=== PATIENT | female | born 2000 | race Caucasian/White ===

== ENCOUNTER 2023-08-25 15:04 | Emergency (ER) | payer SELFPAY ==
[2023-08-25 15:05] VITALS: BP 120/78; PULSE 69; RESP 14; TEMP 36.4; O2SAT 100; BMI 20.2
--- NOTE | 2023-08-25 15:26 | ED.VIS.GI ---
HPI HPI - GI History of Present Illness Chief Complaint: Abd Pain Informant: patient Abdominal Pain/Flank Pain Onset: Today Context: Sudden Onset Timing: Continuous Quality: Aching and Cramping Location: RLQ and LLQ Worsened by: Nothing Relieved by: Nothing Nausea/Vomiting/Emesis GI Symptom: Positive for Nausea and Vomiting Onset: Today Quality: Positive for Nonbilious; Negative for Blood streaks, Coffee ground or Hematemesis Diarrhea/Melena/Hematochezia GI Symptom: Positive for Diarrhea; Negative for Melena or Hematochezia Onset: Today Stool Quality: Positive for Loose Associated Symptoms Associated Symptoms: Negative for Dysuria, Frequency or Hematuria LMP: 2 days ago Narrative Narrative: Patient presents with abdominal pain, nausea, vomiting, and diarrhea that began today. Patient states it began approximate 1 hour prior to arrival. Patient states it began rather suddenly. Patient describes her pain as aching and sharp. Patient states it is mainly over her lower abdomen. Patient states nothing makes it better and nothing makes it worse. Patient admits to some nausea and vomiting. Patient denies any hematemesis or coffee-ground emesis. Patient admits to some loose diarrhea. Patient denies any melena or hematochezia. Patient denies any urinary complaints. Patient states her last menstrual period was 2 days ago. PFSH PFSH Medical History no medical history no medical history Home Medications sulfamethoxazole 800 mg-trimethoprim 160 mg tablet 1 tab PO BID #6 TABLETS 08/25/23 [Rx Last Taken Unknown] Allergy/AdvReac Type Severity Reaction Status Date / Time Iodinated Contrast Media Allergy Severe Anaphylaxis Verified 08/25/23 15:06 shellfish derived Allergy Severe Anaphylaxis Verified 08/25/23 15:06 Surgical History Hx of tonsillectomy Social History Smoking Status: Never smoker ROS ROS ED Constitutional Constitutional ED: Reports chills and subjective; Denies fever(s) Eyes Eyes: Denies blurry vision or change in vision ENT ENT ED: Denies rhinorrhea or sore throat Cardiovascular Cardiovascular: Denies chest pain or palpitations Respiratory/Chest Respiratory/Chest: Denies cough or dyspnea Gastrointestinal Gastrointestinal: Reports abdominal pain, diarrhea, nausea and vomiting; Denies melena Genitourinary Genitourinary ED: Denies dysuria or hematuria Musculoskeletal Musculoskeletal: Denies back pain or neck pain Integumentary Denies abscess or rash Neurologic Neurologic: Denies headache(s) or weakness Allergic/Immunologic Allergic/Immunologic ED: Denies mouth swelling or urticaria EXAM Physical Exam Const Vital Signs: 08/25/23 15:05 Temperature 97.5 F L Temperature Source Temporal Pulse Rate 69 Respiratory Rate 14 Blood Pressure 120/78 Blood Pressure Mean 92 Pulse Ox 100 Oxygen Delivery Method Room Air Positive well nourished and well developed General Appearance ED: well developed and NAD HEENT Reports moist mucous membranes Neck supple and no JVD Resp normal respiratory effort and clear to auscultation bilaterally Cardio regular rate and regular rhythm GI non-distended Palpation: soft and tender LLQ, RLQ and suprapubic; Negative for guarding or rebound tenderness present Neuro CN's II-XII intact bilaterally, moves all extremities and no sensory deficits noted Sensorium / Orientation: alert Motor Exam: strength 5/5 throughout Psych mental status grossly normal and thought process normal MDM MDM MDM Narrative Medical decision making narrative: Differential diagnosis includes urinary tract infection, , ectopic , gastroenteritis, and electrolyte abnormality. CBC will be obtained to assess for leukocytosis and anemia. Basic metabolic profile will be obtained to assess for electrolyte abnormality and renal function. Urinalysis will be obtained to assess for urinary tract infection. Serum hCG will be obtained to assess for . Lab Data Attestation: I reviewed the patient's lab results. Lab results narrative: CBC was reviewed. There is a mild leukocytosis of 16.6. The remainder was essentially within normal limits. Basic metabolic profile was reviewed and was within normal limits. Serum hCG was reviewed and was negative. Urinalysis was reviewed. There were positive nitrites. Leukocyte esterase was 100. There were 10-25 white blood cells and 4+ bacteria. Labs: Laboratory Results - last 24 hr 08/25/23 08/25/23 15:30 15:35 WBC 16.6 H RBC 4.89 Hgb 15.3 H Hct 45.5 MCV 93.0 MCH 31.3 MCHC 33.6 RDW Std Deviation 40.7 RDW Coeff of Art 11.9 Plt Count 413 MPV 9.7 Immature Gran % (Auto) 1.300 H Neut % (Auto) 83.4 H Lymph % (Auto) 7.8 L [place] % (Auto) 6.1 Eos % (Auto) 0.7 Baso % (Auto) 0.7 Absolute Neuts (auto) 13.9 H Absolute Lymphs (auto) 1.30 Nucleated RBC % 0 Sodium 137 Potassium 3.7 Chloride 106 Carbon Dioxide 28.0 Anion Gap 3 L BUN 10 Creatinine 0.76 Estim Creat Clear Calc 86.87 Est GFR (MDRD) Af Amer 121 Est GFR (MDRD) Non-Af 100 BUN/Creatinine Ratio 13.2 Glucose 95 Calcium 8.9 Serum , Qual NEGATIVE Urine Color Yellow Urine Clarity Cloudy Urine pH 7.[address] 1.010 Urine Protein 30 H Urine Glucose (UA) Normal Urine Ketones 5 H Urine Occult Blood 25 H Urine Nitrite Positive H Urine Bilirubin Negative Urine Urobilinogen Normal Ur Leukocyte Esterase 100 H Urine RBC 0-5 SEEN Urine WBC 10-25 SEEN Ur Squamous Epith Cells 0 SEEN Amorphous Sediment 2+ Urine Bacteria 4+ Urine Mucus 0 SEEN Additional Tests and Interventions Additional Tests or Interventions: Urine culture was ordered. Treatment and Re-Evaluation :: Patient was given IV fluids. Patient was ordered Zofran but she refused this. Patient was feeling better on reevaluation. Patient was advised of her findings. Patient was given a dose of Bactrim here. Patient was given a prescription for Bactrim. Patient was instructed to follow-up with her primary care physician in 5 to 7 days. Patient was instructed return if worse in any way. Patient understood and was agreeable with the plan. All questions were answered. Discharge Plan Triage Chief Complaint: Abd Pain ED Provider: Rancho Morris Dx/Rx/DC Orders Clinical Impression: Urinary tract infection, Lower abdominal pain Instructions: ED Cystitis Female Adult Prescriptions: New sulfamethoxazole-trimethoprim [sulfamethoxazole-trimethoprim] 800-160 mg tablet 1 tab PO BID Qty: 6 0RF Primary Care Provider: Care Physician,No Primary Referrals: Care Physician,No Primary [Primary Care Provider] - Disposition Disposition: Home, Self Care
[2023-08-25] MEDS: 0.9% Normal Saline (1000mL) 1,000 ML 1000 ML IV (15:50)
[2023-08-25 15:51] LABS: Mucous, Urine 0 SEEN /hpf (<or=2+); Squamous Epithelial Cells - UA 0 SEEN /hpf (5-10)
[2023-08-25 15:53] LABS: Absolute Neutrophil Count 13.9 X10^3/uL (2.0-7.7); Basophil# 0.11 X10^3/uL; Basophil% 0.7 % (0-1); Eosinophil# 0.11 X10^3/uL; Eosinophils% 0.7 % (0-5); Hematocrit 45.5 % (37-47); Hemoglobin 15.3 g/dL (12.0-15.0); Lymphocyte % 7.8 % (19-41); Mean Corp Hgb Conc 33.6 g/dL (32-36); Mean Corpuscular Hgb 31.3 pg (27.0-32.0); Mean Platelet Vol. 9.7 fl (6.2-12.0); Monocyte# 1.01 X10^3/uL; Monocyte% 6.1 % (0-10); NRBC Flagged by Analyzer 0 % (0-5); Neutrophil # 13.86 X10^3/uL (2.7-7.7); Neutrophil % 83.4 % (47-70); Platelet Count 413 K/mm3 (150-450); RBC Distribution Width CV 11.9 % (11.6-14.6); RBC Distribution Width SD 40.7 fl (35.1-43.9); Red Blood Count 4.89 M/mm3 (4.2-5.4); White Blood Count 16.6 K/mm3 (4.4-11.0)
[2023-08-25 15:58] LABS: Glucose, Dipstick Normal (Normal); Ketone-Dipstick 5 mg/dl (Negative); Leukocyte Esterase-Dipstick 100 /ul (Negative); Nitrite-Dipstick Positive (Negative); Occult Blood-Urine 25 /ul (Negative); Protein-Dipstick 30 mg/dl (Negative); Urine Bilirubin Dipstick Negative (Negative); Urine Urobilinogen Normal (Normal)
[2023-08-25 16:09] LABS: Internal QC Validated? YES +Cl - CLEAR BKGD; Pregnancy, Serum, hCG Quali. NEGATIVE Negative
[2023-08-25 16:09] LABS: Color, Urine Yellow (Yellow); Urine Clarity Cloudy (Clear)
[2023-08-25 16:13] LABS: Amorphous Sediment 2+; Bacteria 4+ /hpf (None Seen); Red Blood Cells-Urine 0-5 SEEN /hpf (0-5); White Blood Cells 10-25 SEEN /hpf (0-5)
[2023-08-25 16:14] LABS: Anion Gap 3 (5-15); BUN 10 mg/dL (7-18); BUN/Creat Ratio 13.2 RATIO (10-20); Calcium,Total 8.9 mg/dL (8.5-10.1); Chloride 106 mmol/L (98-107); Creatinine, Serum 0.76 mg/dL (0.55-1.02); EST Glomerular Filtration Rate 100 mL/min (>60); Est Glom Filt Rate - Afr Amer 121 mL/min (>60); Estimated Creatinine Clearance 86.87 ml/min; Glucose 95 mg/dL (74-106); Potassium 3.7 mmol/L (3.5-5.1); Sodium Level 137 mmol/L (136-145)
[2023-08-25] MEDS: Smz/Tmp Ds Tablet 1 TABLET PO (17:22)
[2023-08-25 17:24] VITALS: RESP 14
== END 2023-08-25 17:25 | disposition home or self-care (01) ==
PROVIDERS: Emergency Provider Emergency Medicine; Visit Provider Emergency Medicine
DX: N39.0 Urinary tract infection, site not specified (principal); R19.7 Diarrhea, unspecified; R11.2 Nausea with vomiting, unspecified; R10.31 Right lower quadrant pain; R10.32 Left lower quadrant pain
CPT/HCPCS: 80048; 81001; 84703; 85025; 87086; 87088; 87186; 96361; 96374; 99283; J7030; A4216; J2405

== ENCOUNTER 2024-08-22 15:14 | Emergency (ER) | payer SELFPAY ==
[2024-08-22 15:15] VITALS: BP 100/59; PULSE 75; RESP 18; TEMP 36.5; O2SAT 100; BMI 22.8
--- NOTE | 2024-08-22 15:28 | EKG12_ITS ---
Test Reason : SYNCOPE Blood Pressure : */* mmHG Vent. Rate : 78 BPM Atrial Rate : 78 BPM P-R Int : 160 ms QRS Dur : 78 ms QT Int : 384 ms P-R-T Axes : 52 47 23 degrees QTcB Int : 437 ms Sinus rhythm with occasional Premature ventricular complexes Otherwise normal ECG Confirmed by LUCRECIA LYONS, DALLAS ([id number]), greeting card editor ANAHY CAROLINA ([id number]) on 08/23/2024 11:40:50 AM Referred By: Confirmed By: DALLAS SINGER MD
--- NOTE | 2024-08-22 15:29 | EX.ED.DYSGE1 ---
HPI History of Present Illness Chief Complaint: Syncope Detail of Chief Complaint: Syncope Informant: patient Narrative Narrative: Patient presents to the emergency department with concern over syncopal episode that occurred today. Patient states that she had just urinated and stood up to wash her hands and started feeling weak and lightheaded and felt like she might pass out as her heart was racing. She sat back down and prop herself up against the toilet and called her family member and eventually lost consciousness for about a minute and woke back up. She did not injure herself. Patient states that this is the third episode with this current . She is 16 weeks . Her last episode was about 4 weeks ago. She typically has enough time to lay down or proper self up before she passes out and wait for symptoms to pass. Patient denies recent illness. She denies vomiting or diarrhea. She denies chest pain. Patient last ultrasound was early August which was approximately a week ago. Patient denies any vaginal bleeding or abdominal pain. Patient called her [employer] who advised her to come to the emergency department and get evaluated. [facility] Medical History (Updated 08/22/24 @ 17:[address] Ramonita Robertson, DO) Physical exam, pre-employment Home Medications ?Medication ?Instructions ?Recorded ?Last Taken ?Type lactobacillus combination no.4 3 3,000 mmu cells PO DAILY 03/13/24 Unknown History billion cell capsule (Probiotic) naproxen sodium 220 mg capsule 220 mg PO Q12H PRN 03/13/24 Unknown History (Aleve) nitrofurantoin 100 mg PO Q12H 7 days #14 caps 08/22/24 Unknown Rx monohydrate/macrocrystals 100 mg capsule (Macrobid) Allergy/AdvReac Type Severity Reaction Status Date / Time Iodinated Contrast Media Allergy Severe Anaphylaxis Verified 08/22/24 15:15 shellfish derived Allergy Severe Anaphylaxis Verified 08/22/24 15:15 copper Allergy Rash Verified 08/22/24 15:15 nickel Allergy Rash Verified 08/22/24 15:15 Family History Other Diabetes Surgical History Hx of tonsillectomy Social History (Updated 03/13/24 @ 11:17 by Jenny Elma) Smoking Status: Never smoker alcohol intake: never ROS ROS ED Review of Systems ROS Unobtainable: other Constitutional Constitutional ED: Reports lethargy; Denies chills, fever(s), sweats or weight loss Eyes Eyes: Denies blurry vision, change in vision or diplopia ENT ENT ED: Denies rhinorrhea or sore throat Cardiovascular Cardiovascular: Reports racing heartbeat; Denies chest pain or orthopnea Respiratory/Chest Respiratory/Chest: Denies cough, dyspnea, dyspnea on exertion, orthopnea or sputum Gastrointestinal Gastrointestinal: Denies abdominal pain, diarrhea, nausea or vomiting Genitourinary Genitourinary ED: Denies dysuria, hematuria or urinary frequency Musculoskeletal Musculoskeletal: Denies arthralgias, back pain, myalgias or neck pain Integumentary Denies abscess, Abrasions or rash Neurologic Neurologic: Reports other Details: Syncope ; Denies headache(s) or weakness Psychiatric Psychiatric: Denies anxiety, depression or suicidal thoughts Endocrine Endocrinology: Denies polydipsia, polyphagia or polyuria Hematologic/Lymphatic Hematologic/Lymphatic: Denies easy bleeding, easy bruising or lymphadenopathy Allergic/Immunologic Allergic/Immunologic ED: Denies mouth swelling, tongue swelling or urticaria EXAM Physical Exam Const Vital Signs: 08/22/24 15:15 08/22/24 15:41 Temperature 97.7 F L Temperature Source Temporal Pulse Rate 75 Pulse Rate [Lying] 77 Pulse Rate [Sitting (for 1 minute prior to obtaining)] 79 Pulse Rate [Standing (for 1 minute prior to obtaining)] 88 Respiratory Rate 18 Blood Pressure 100/59 L Blood Pressure [Lying] 95/49 L Blood Pressure [Sitting (for 1 minute prior to obtaining)] 96/55 L Blood Pressure [Standing (for 1 minute prior to obtaining)] 110/56 L Blood Pressure Mean 72 Blood Pressure Mean [Lying] 64 Blood Pressure Mean [Sitting (for 1 minute prior to obtaining)] 68 Blood Pressure Mean [Standing (for 1 minute prior to obtaining)] 74 Pulse Ox 100 Oxygen Delivery Method Room Air Positive well nourished and well developed General Appearance ED: well developed and NAD HEENT Reports TM's clear and moist mucous membranes normocephalic and atraumatic; Negative for trauma or tenderness Tympanic Membrane ED: Yes TM's clear Eyes PERRL and EOMs intact bilaterally General Eye ED: Negative for pale conjunctiva or scleral icterus Neck no lymphadenopathy, supple and no JVD General: Negative for tenderness Chest Wall inspection of chest normal and palpation of chest normal Chest: Negative for tenderness Resp normal respiratory effort and clear to auscultation bilaterally Effort and Inspection: Negative for respiratory distress or pain with movement Auscultation: Negative for rhonchi, wheezes or diminished lung sounds Cardio regular rate, regular rhythm, S1 normal heart sound, S2 normal heart sound and no murmurs Peripheral Pulses: pulses 2+ throughout GI normal to inspection, nondistended, normoactive bowel sounds, soft to palpation, non-tender, non-distended and no masses Back/Spine no CVA tenderness and no thoracic nor lumbar tenderness Extremity normal to inspection General Extremety ED: Negative for edema General Extremity: Negative for edema Neuro oriented x3, CN's II-XII intact bilaterally, no sensory deficits noted and gait normal Sensorium / Orientation: awake, alert, oriented to person, oriented to place and oriented to time Motor Exam: strength 5/5 throughout and strength abnormal Psych mental status grossly normal Skin no rashes or lesions noted and no wounds MDM MDM MDM Narrative Medical decision making narrative: Patient with a syncopal episode with . Clinically looks well. She just urinated and then afterwards felt symptomatic and passed out. Clinically I suspect she may have had a vasovagal spell. I do established on arrival. EKG obtained showed a sinus rhythm with a rate of 90 bpm with no acute ST segment changes. CBC with differential obtained showed a white count of 15.5 with hemoglobin 12.9 and platelet count of 369. Chemistries were unremarkable. LFTs did show slight elevation in the AST at 132 and ALT of 202. Alk phos was normal and total bilirubin was normal at 0.2. Urinalysis had 500 leukocyte esterase and 10-25 WBCs and +1 bacteria. Urine culture was sent. Patient had a similar appearing urine in 2022 and culture did come back positive for E. coli. I will go ahead and treat her with Macrobid for 1 week and will send a urine culture. She did receive a liter fluid bolus in the emergency department. Orthostatic vital signs were negative. At this point she is feeling well and feel she can be safely discharged to home. Patient advised to push fluids. She is advised that can cause fluid shifts that may make her predisposed to passing out. When she feels symptomatic she is to lay down until symptoms pass. Lab Data Attestation: I reviewed the patient's lab results. Labs: Laboratory Results - last 24 hr 08/22/24 08/22/24 15:34 16:27 WBC 15.5 H RBC 4.16 L Hgb 12.9 Hct 38.6 MCV 92.8 MCH 31.0 MCHC 33.4 RDW Std Deviation 43.1 RDW Coeff of Art 12.6 Plt Count 369 MPV 10.2 Immature Gran % (Auto) 4.300 H Neut % (Auto) 79.0 H Lymph % (Auto) 8.2 L [place] % (Auto) 5.4 Eos % (Auto) 2.3 Baso % (Auto) 0.8 Absolute Neuts (auto) 12.3 H Absolute Lymphs (auto) 1.27 Nucleated RBC % 0 Sodium 136 Potassium 3.5 Chloride 105 Carbon Dioxide 24.0 Anion Gap 7 BUN 8 Creatinine 0.41 L Estim Creat Clear Calc 159.66 Est GFR (MDRD) Af Amer 244 Est GFR (MDRD) Non-Af 201 BUN/Creatinine Ratio 19.4 Glucose 99 Calcium 9.2 Total Bilirubin 0.20 AST 132 H ALT 202 H Alkaline Phosphatase 55 Total Protein 7.3 Albumin 3.7 Globulin 3.6 Albumin/Globulin Ratio 1.0 Urine Color Yellow Urine Clarity Cloudy Urine pH 8.0 Ur Specific [place] 1.015 Urine Protein 30 H Urine Glucose (UA) Normal Urine Ketones Negative Urine Occult Blood 10 H Urine Nitrite Negative Urine Bilirubin Negative Urine Urobilinogen Normal Ur Leukocyte Esterase 500 H Urine RBC 0-5 SEEN Urine WBC 10-25 SEEN Ur Squamous Epith Cells 0-5 SEEN Amorphous Sediment 3+ Urine Bacteria 1+ Urine Mucus 0 SEEN EKG Initial EKG: Attestation: I personally reviewed and interpreted this EKG as follows: Comments: Sinus rhythm with ventricular rate of 90 bpm with no acute ST segment changes, occasional PVCs Discharge Plan Triage Chief Complaint: Syncope ED Provider: Ramonita Robertson Dx/Rx/DC Orders Clinical Impression: Syncope, UTI (urinary tract infection), Syncope, vasovagal Instructions: UTIs Understanding, ED Fainting, Vagal Reaction, Dizziness Syncope Prescriptions: New nitrofurantoin monohyd/m-cryst [Macrobid] 100 mg capsule 100 mg PO Q12H 7 Days Qty: 14 0RF Rx Instructions: must administer with a meal/food No Action Probiotic 3 billion cell capsule 3,000 mmu cells PO DAILY Rx Instructions: administer with a meal naproxen sodium [Aleve] 220 mg capsule 220 mg PO Q12H PRN Primary Care Provider: Care Physician,No Primary Referrals: Gladys Martinez MD [Med Staff - Active Staff] - 3-5 Days Care Physician,No Primary [Primary Care Provider] - Print Language: [place]uran Disposition Disposition: Home, Self Care
[2024-08-22] MEDS: 0.9% Normal Saline (1000mL) 1,000 ML 1000 ML IV (15:36)
[2024-08-22 15:41] VITALS: BP 110/56; BP 95/49; BP 96/55; PULSE 77; PULSE 79; PULSE 88
[2024-08-22 15:48] LABS: Absolute Lymphocyte Count 1.27 X10^3/uL (0.83-4.51); Absolute Neutrophil Count 12.3 X10^3/uL (2.0-7.7); Basophil# 0.12 X10^3/uL; Basophil% 0.8 % (0-1); Eosinophil# 0.35 X10^3/uL; Eosinophils% 2.3 % (0-5); Hematocrit 38.6 % (37-47); Hemoglobin 12.9 g/dL (12.0-15.0); Lymphocyte # 1.27 X10^3/ul (0.83-4.51); Lymphocyte % 8.2 % (19-41); Mean Corp Hgb Conc 33.4 g/dL (32-36); Mean Corpuscular Volume 92.8 fL (81-99); Mean Platelet Vol. 10.2 fl (6.2-12.0); Monocyte# 0.84 X10^3/uL; Monocyte% 5.4 % (0-10); NRBC Flagged by Analyzer 0 % (0-5); Neutrophil # 12.28 X10^3/uL (2.7-7.7); Platelet Count 369 K/mm3 (150-450); RBC Distribution Width CV 12.6 % (11.6-14.6); RBC Distribution Width SD 43.1 fl (35.1-43.9); Red Blood Count 4.16 M/mm3 (4.2-5.4); White Blood Count 15.5 K/mm3 (4.4-11.0)
[2024-08-22 16:19] LABS: AST(SGOT) 132 U/L (15-37); Alanine Aminotransfer ALT/SGPT 202 U/L (13-56); Albumin, Serum 3.7 g/dL (3.2-5.0); Alkaline Phosphatase 55 U/L (45-117); Anion Gap 7 (5-15); BUN 8 mg/dL (7-18); BUN/Creat Ratio 19.4 RATIO (10-20); Calcium,Total 9.2 mg/dL (8.5-10.1); Chloride 105 mmol/L (98-107); Creatinine, Serum 0.41 mg/dL (0.55-1.02); EST Glomerular Filtration Rate 201 mL/min (>60); Est Glom Filt Rate - Afr Amer 244 mL/min (>60); Estimated Creatinine Clearance 159.66 ml/min; Globulin 3.6 g/dL (2.2-4.2); Glucose 99 mg/dL (74-106); Potassium 3.5 mmol/L (3.5-5.1); Protein, Total 7.3 g/dL (6.4-8.2); Sodium Level 136 mmol/L (136-145)
[2024-08-22 16:35] LABS: Mucous, Urine 0 SEEN /hpf (<or=2+)
[2024-08-22 16:45] LABS: Color, Urine Yellow (Yellow); Glucose, Dipstick Normal (Normal); Ketone-Dipstick Negative (Negative); Leukocyte Esterase-Dipstick 500 /ul (Negative); Nitrite-Dipstick Negative (Negative); Occult Blood-Urine 10 /ul (Negative); Protein-Dipstick 30 mg/dl (Negative); Specific Gravity, Urine 1.015 (1.002-1.030); Urine Bilirubin Dipstick Negative (Negative); Urine Clarity Cloudy (Clear); Urine Urobilinogen Normal (Normal)
[2024-08-22 17:11] LABS: White Blood Cells 10-25 SEEN /hpf (0-5)
[2024-08-22 17:12] LABS: Amorphous Sediment 3+; Bacteria 1+ /hpf (None Seen); Red Blood Cells-Urine 0-5 SEEN /hpf (0-5); Squamous Epithelial Cells - UA 0-5 SEEN /hpf (5-10)
[2024-08-22] MEDS: Nitrofurantoin Macrocrystals 100 MG Capsule PO (17:26)
[2024-08-22 17:27] VITALS: BP 96/57; PULSE 81; RESP 16; TEMP 36.8; O2SAT 99
== END 2024-08-22 17:28 | disposition home or self-care (01) ==
PROVIDERS: Emergency Provider Emergency Medicine; Visit Provider Emergency Medicine
DX: O26.892 Other specified pregnancy related conditions, second trimester (principal); R55 Syncope and collapse; O23.42 Unspecified infection of urinary tract in pregnancy, second trimester; Z3A.16 16 weeks gestation of pregnancy
CPT/HCPCS: 80053; 81001; 85025; 87086; 93005; 96360; 99285; A4216

== ENCOUNTER 2024-12-11 02:00 | Outpatient (CLI) | payer OTHER, MEDICAID, SELFPAY ==
[2024-12-11 02:12] VITALS: BMI 26.9
[2024-12-11 02:24] VITALS: BP 110/68; PULSE 88; PULSE 95; O2SAT 97
[2024-12-11 02:36] LABS: Mucous, Urine 0 SEEN /hpf (<or=2+); Red Blood Cells-Urine 0 SEEN /hpf (0-5); Squamous Epithelial Cells - UA 0 SEEN /hpf (5-10); White Blood Cells 0 SEEN /hpf (0-5)
[2024-12-11 02:37] LABS: Color, Urine Yellow (Yellow); Glucose, Dipstick Normal (Normal); Ketone-Dipstick Negative (Negative); Leukocyte Esterase-Dipstick 25 /ul (Negative); Nitrite-Dipstick Positive (Negative); Occult Blood-Urine Negative /ul (Negative); Protein-Dipstick Negative (Negative); Urine Bilirubin Dipstick Negative (Negative); Urine Clarity Clear (Clear); Urine Urobilinogen Normal (Normal)
[2024-12-11 02:45] LABS: Bacteria 2+ /hpf (None Seen)
[2024-12-11] MEDS: Cephalexin 500 MG Capsule PO (03:05)
--- NOTE | 2024-12-12 11:39 | OB.TRI.HP_ITS ---
HPI - General General Date of Admission: 12/11/24 Date of Service: 12/11/24 Chief Complaint: contractions HPI Narrative ZIYAD MON, is a 24 F who presents W 31 6/7 weeks c/o ctxs. Maternal Data Information Final THOMAS: 02/06/25 Gestational age: 31 6/7 [facility] Medical History (Updated 12/12/24 @ 11:[address] Gladys Martinez MD) History of scoliosis Wears glasses Anemia Restless legs Syncope Physical exam, pre-employment Home Medications ?Medication ?Instructions ?Recorded ?Last Taken ?Type aspirin 81 mg tablet,delayed 81 mg PO DAILY 11/27/24 0 12/10/24 History release ferrous sulfate 137 mg (45 mg 137 mg PO DAILY 11/27/24 12/10/24 History iron) tablet,extended release (Slow Fe) folic acid 1 mg tablet 1 mg PO DAILY 11/27/2412/10 History Allergy/AdvReac Type Severity Reaction Status Date / Time Iodinated Contrast Media Allergy Severe Anaphylaxis Verified 12/11/24 02:23 shellfish derived Allergy Severe Anaphylaxis Verified 12/11/24 02:23 copper Allergy Rash Verified 12/11/24 02:23 nickel Allergy Rash Verified 12/11/24 02:23 Family History Other Diabetes Surgical History (Updated 11/27/24 @ 16:11 by Sultana Decker) Hx of tonsillectomy Social History (Updated 03/13/24 @ 11:17 by Jenny Wills) Smoking Status: Never smoker alcohol intake: never NST FHR Rate Baby A Baseline: 140 Variability:: Moderate Accelerations:: 10 x 10 Decelerations:: None NST Reactive:: Appropriate for gestational age Uterine Activity:: irreg ctxs Assessment & Plan (1) 30 weeks gestation of : PLAN: rx to be sent for UTI, watch for sensitivities f/u in office or prn no evidence of active PTL (2) Supervision of high risk in third trimester: (3) E. coli UTI:
== END 2024-12-11 03:14 | disposition home or self-care (01) ==
LOC: WPOUT 02:10 → WP 02:10
PROVIDERS: Visit Provider Obstetrics & Gynecology
DX: O98.813 Other maternal infectious and parasitic diseases complicating pregnancy, third trimester (principal); O23.43 Unspecified infection of urinary tract in pregnancy, third trimester; B96.20 Unspecified Escherichia coli [E. coli] as the cause of diseases classified elsewhere; O09.93 Supervision of high risk pregnancy, unspecified, third trimester; Z3A.30 30 weeks gestation of pregnancy; Z79.82 Long term (current) use of aspirin
CPT/HCPCS: 59025; 59050; 81001; 87086; 87088; 87186; 99221; G0378

== ENCOUNTER 2025-02-04 07:52 | Inpatient (IN) | payer OTHER, MEDICAID, SELFPAY ==
[2025-02-04] VITALS (54 sets, daily range): BP systolic 97–129; BP diastolic 50–81; PULSE 70–134; RESP 14–16; TEMP 36.2–37.7; O2SAT 94–99; BMI 28.1
[2025-02-04 07:43] LABS: ROM Internal Control Test YES-OK TO RESULT pt. (Internal QC)
[2025-02-04 07:44] LABS: ROM Patient Test POSITIVE (Negative); Record Kit Lot#, ROM+ K3358
[2025-02-04] MEDS: Lactated Ringers 1,000 ML 50 ML IV (08:05)
[2025-02-04 08:17] LABS: Absolute Lymphocyte Count 1.28 X10^3/uL (0.83-4.51); Absolute Neutrophil Count 10.6 X10^3/uL (2.0-7.7); Basophil# 0.11 X10^3/uL; Basophil% 0.8 % (0-1); Eosinophil# 0.25 X10^3/uL; Eosinophils% 1.8 % (0-5); Hematocrit 34.4 % (37-47); Hemoglobin 11.2 g/dL (12.0-15.0); Lymphocyte # 1.28 X10^3/ul (0.83-4.51); Lymphocyte % 9.3 % (19-41); Mean Corp Hgb Conc 32.6 g/dL (32-36); Mean Corpuscular Hgb 28.4 pg (27.0-32.0); Mean Corpuscular Volume 87.3 fL (81-99); Mean Platelet Vol. 10.5 fl (6.2-12.0); Monocyte# 0.95 X10^3/uL; Monocyte% 6.9 % (0-10); NRBC Flagged by Analyzer 0 % (0-5); Neutrophil # 10.62 X10^3/uL (2.7-7.7); Neutrophil % 77.6 % (47-70); Platelet Count 316 K/mm3 (150-450); RBC Distribution Width CV 13.6 % (11.6-14.6); RBC Distribution Width SD 43.3 fl (35.1-43.9); Red Blood Count 3.94 M/mm3 (4.2-5.4); White Blood Count 13.7 K/mm3 (4.4-11.0)
[2025-02-04] MEDS: Penicillin G Pot 5,000,000 UNITS in 0.9% Normal Saline (100mL MB+) 100 ML 150 UNITS IV (08:30)
--- NOTE | 2025-02-04 08:38 | PCM.HP.OB ---
HPI - General General Date of Admission: 02/04/25 HPI Narrative ZIYAD MON, is a 24 F who presents with spontaneous rupture of membranes and contractions. Maternal Data Information THOMAS Calculator Estimated Delivery Date Method Current WG Current Estimate 02/06/25 Manual 39w 5d PFSH [facility] Medical History (Updated 02/04/25 @ 08:42 by Yocasta Zhou CNM) PCOS (polycystic ovarian syndrome) Arcuate uterus History of scoliosis Wears glasses Anemia Restless legs Syncope Physical exam, pre-employment Home Medications ?Medication ?Instructions ?Recorded ?Last Taken ?Type aspirin 81 mg tablet,delayed 81 mg PO DAILY 11/27/24 12/10/24 History release ferrous sulfate 137 mg (45 mg 137 mg PO DAILY 11/27/24 12/10/24 History iron) tablet,extended release (Slow Fe) folic acid 1 mg tablet 1 mg PO DAILY 11/27/24 12/10/24 History Allergy/AdvReac Type Severity Reaction Status Date / Time Iodinated Contrast Media Allergy Severe Anaphylaxis Verified 12/11/24 02:23 shellfish derived Allergy Severe Anaphylaxis Verified 12/11/24 02:23 copper Allergy Rash Verified 12/11/24 02:23 nickel Allergy Rash Verified 12/11/24 02:23 Family History Other Diabetes Surgical History Hx of tonsillectomy Social History (Updated 03/13/24 @ 11:17 by Jenny Wills) Smoking Status: Never smoker alcohol intake: never History Elective abortions Hx Para 0 Spontaneous abortions Hx # Term Pregnancies Ectopic pregnancies Hx # Pregnancies Multiple births # of living children Vital Signs Vital Signs Vital Signs: 02/04/25 06:59 02/04/25 06:59 02/04/25 07:01 Temperature Temperature Source Pulse Rate 70 Respiratory Rate Blood Pressure 116/71 BP Systolic 116 BP Diastolic 71 Pulse Ox 99 02/04/25 07:01 02/04/25 07:01 02/04/25 07:01 Temperature Temperature Source Temporal Pulse Rate 71 Respiratory Rate 16 Blood Pressure BP Systolic BP Diastolic Pulse Ox 02/04/25 07:01 02/04/25 08:13 02/04/25 08:13 Temperature 98.9 F Temperature Source Pulse Rate 84 Respiratory Rate Blood Pressure 119/66 BP Systolic 119 BP Diastolic 66 Pulse Ox 02/04/25 08:13 02/04/25 08:13 02/04/25 08:13 Temperature Temperature Source Temporal Pulse Rate 78 Respiratory Rate Blood Pressure BP Systolic BP Diastolic Pulse Ox 98 02/04/25 08:13 02/04/25 08:13 02/04/25 08:13 Temperature Temperature Source Pulse Rate 76 Respiratory Rate 14 Blood Pressure BP Systolic BP Diastolic Pulse Ox 97 02/04/25 08:13 Temperature 98.8 F Temperature Source Pulse Rate Respiratory Rate Blood Pressure BP Systolic BP Diastolic Pulse Ox Weight Weight: 149 lb Body Mass Index (BMI) 28.1 Labs Labs Labs: Blood Type Pending Antibody Screen Pending Hct 34.4 % (37-47) L Hgb 11.2 g/dL (12.0-15.0) L Syphilis Total Ab Pending Assessment & Plan (1) History of scoliosis: (2) Anemia: COMMENT: ON MED (3) Spontaneous rupture of amniotic membranes: (4) Spontaneous onset of labor: (5) 39 weeks gestation of : (6) Positive GBS test: PLAN: Plan CE /-1 ROM plus- POSITIVE Admit to labor and delivery Routine labs GBS positive- Start PCN protocol Epidural when indicated- unsure if she can get it due to scoliosis- will consult anesthesia
[2025-02-04 08:48] LABS: Syphilis Antibodies Nonreactive (Nonreactive)
[2025-02-04] MEDS: Lactated Ringers 1,000 ML 999 ML IV ×2 (11:27→14:24)
[2025-02-04] MEDS: Penicillin G 3,000,000 Units 50 ML 50 UNITS IV ×3 (12:29→20:36)
[2025-02-04] MEDS: fentaNYL-bupivacaine (epidural) 100 ML BAG EPIDURAL ×3 (14:03→18:54)
--- NOTE | 2025-02-04 20:28 | EX.PCM.OBVAG ---
Maternal Data Information THOMAS Calculator Estimated Delivery Date Method Current Current Estimate 02/06/25 Manual 39w 5d Vaginal Delivery Maternal Presentation Maternal Presentation: Active Labor Vaginal Delivery Information Procedure Performed: Spontaneous Vaginal Delivery Surgeon/Practitioner: Mason Reyna Date of Procedure: 02/04/25 Pre-Procedure Diagnosis: Labor Post-Procedure Diagnosis: Labor Type of anesthesia: Epidural Estimated Blood Loss: 250ml Findings Description of procedure: Called to room when patient C/C/+2. She was prepped & draped. Patient pushed well to deliver the head. head was gently guided to allow delivery of anterior and posterior shoulders. No excess traction placed on the head. The body delivered. 3VC clamped and cut in delayed fashion. Placenta delivered with gentle traction and good uterine tone obtained. Presentation: SHERWIN Amniotic Membrane Rupture Type: Spontaneous Amniotic Fluid Description: Clear Placental Delivery Description: Expressed Placenta Disposition: [facility] Specimen collected: No Cord Vessel Description: 3 Vessels Cord Entanglement: None A Gender: Female (1 minute): 8 (5 minute): 9 Delayed Cord Clamping: Yes [employer] painter set: No Post Vaginal Deli Medications given after delivery: IV Pitocin Episiotomy Description: None Laceration: 1st degree (perineal - repaired with 3-0 vicryl) Complication Complications: No
[2025-02-04] MEDS: Oxytocin 15 Units/NS 250ml 15 UNITS/250 ML IV.SOLN 334 UNITS IV (22:49)
[2025-02-04] MEDS: Oxytocin 15 Units/NS 250ml 15 UNITS/250 ML IV.SOLN 83 UNITS IV (23:35)
[2025-02-05] VITALS (22 sets, daily range): BP systolic 93–106; BP diastolic 52–71; PULSE 71–101; RESP 14–18; TEMP 36.4–36.9; O2SAT 94–100
[2025-02-05] MEDS: Ibuprofen 600 MG Tablet PO ×2 (08:56→14:24)
--- NOTE | 2025-02-05 09:21 | PCM.PN.OB ---
Subjective Subjective Denies complaints other than some soreness with movement. Objective Data Objective Data Vital Signs: Vital Signs Temp Pulse Resp BP Pulse Ox O2 Del Method 98.5 F 88 16 94/71 98 Room Air 02/05/25 08:06 02/05/25 08:06 02/05/25 08:06 02/05/25 08:06 02/05/25 08:06 02/05/25 08:06 Oxygen Delivery Method Room Air Weight: 149 lb Body Mass Index (BMI) 28.1 Intake & Output: Intake and Output for Last 24 Hours 02/03/25 02/04/25 02/05/25 23:59 23:59 23:59 Intake Total 4965.70 / 4965.70 250 / 250 Output Total 1650 / 1650 Balance 3315.70 / 3315.70 250 / 250 Lab / Micro Data 02/04/25 08:00 Physical Exam Const alert, oriented x3 and no apparent distress HEENT normocephalic GI soft to palpation, non-tender and non-distended GI Narrative: fundus firm, mid & below umbilicus Extremity normal to inspection and no calf tenderness Assessment & Plan (1) Vaginal delivery: PLAN: Plan Routine PP care
[2025-02-06 02:00] VITALS: BP 102/65; PULSE 82; RESP 16; TEMP 36.3; O2SAT 98
--- NOTE | 2025-02-06 06:37 | PCM.DC.SUM ---
Providers Date of Admission: 02/04/25 Primary Care Physician: No Primary Care Phys Consultations 02/04/25 07:52 Consult: Anesthesia Routine Comment: Reason For Exam: Labor Reason for Consult: Labor EMERGENT Consult: No MD Notified: No Date Notified: 02/04/25 Time Notified: 07:52 Reason For Visit: VAGINAL DELIVERY Diagnosis Discharge Diagnosis (1) Vaginal delivery: Status: Acute Code(s): O80 - Encounter for full-term uncomplicated delivery Plan PPD 2 Routine care Formula feeding Pain controlled Desires discharge home today Medications at Discharge Home Medications ferrous sulfate 137 mg (45 mg iron) tablet,extended release (Slow Fe) 137 mg PO DAILY 11/27/24 folic acid 1 mg tablet 1 mg PO DAILY 11/27/24 ibuprofen 600 mg tablet 600 mg PO Q6H PRN PRN Pain Score 1-10 #0 tabs 02/06/25 Hospital Course Operations None Procedures None Summary of Care Provided Minutes Spent on Discharge: 15 Hospital Course: Patient had vaginal delivery. Hospital course was uneventful. Physical Exam Narrative Patient seen at bedside. Denies pain. Ambulating and voiding without difficulty. Lochia decreased. Desires discharge home today. Const alert and oriented x3 General Appearance: Negative for in distress HEENT normocephalic Eyes General Eye: normal appearance of both eyes Neck General: normal visual inspection Chest Chest: symmetrical chest wall rise Resp normal respiratory effort and normal air movement Effort and Inspection: symmetric chest movement; Negative for tachypneic Auscultation: clear to auscultation bilaterally Cardio regular rate and regular rhythm Peripheral Pulses: pulses 2+ throughout GI normal to inspection, nondistended, normoactive bowel sounds Narrative: Ice to perineum OB / External & Speculum: vaginal bleeding and other Lochia decreasing Uterus Palpation: uterus fundus firm (Below U) Extremity normal to inspection, full ROM and normal capillary refill Skin no rashes or lesions noted Neuro oriented x3, CN's II-XII intact bilaterally and gait normal Psych mental status grossly normal, thought process normal and activity/motor behavior normal Weight / BMI Weight Weight: 149 lb Body Mass Index (BMI) 28.1 ABG / Lab / Microbiology Data 02/04/25 08:00 D/C Instructions Discharge Diet: No restrictions Discharge Activity: Return to Normal Activity, No Restrictions, May Drive, May Shower and May Take a Tub Bath (Warm water only. No bath salts, soaps, bubbles) May resume sexual activity in: 6-8 weeks Weight Bearing Status: Weight bearing as tolerated Call your doctor if you observe: Fever of 101 or Higher, Inability to urinate, Using more than 1 pad per hour, Shortness of breath, Dizziness, Chest pain, Calf discomfort and Uncontrolled pain DC O2, CPAP, BIPAP Needs Home O2 Discharge instructions: No Please Follow Up With: [facility] Pedrito CHAPMAN When: 2 weeks in office or virtual Meaningful Use Info Meaningful Use Meaningful Use Diagnoses (Choose all that apply): None applicable Ischemic Stroke Statin Dosing Therapy Reference: STATIN DOSE THERAPY REFERENCE: * Patients > 75 years receive moderate or high dose statin therapy. * Patients 75 years or YOUNGER should receive HIGH intensity statin dose unless contraindicated. You will be required to document reason for non-treatment if statin daily dose does not meet guidelines. HIGH DOSE STATIN THERAPY DAILY Atorvastatin > than or = to 40 mg Rosuvastatin > than or = to 20 mg Amlodipine + Atorvastatin > than or = to 2.5/40 mg Ezetimibe + Simvastatin 10/80 mg Simvastatin 80mg Discharge Plan Admission Admit Date/Time: 02/04/25 07:52 Primary Reason for Your Visit: Labor and Delivery Attending Provider: Mason Reyna Primary Care Provider: Care Physician,Yudy Primary Discharge Orders/Prescriptions Prescriptions: New ibuprofen 600 mg Tablet 600 mg PO Q6H PRN PRN (Reason: Pain Score 1-10) Qty: 0 0RF Discontinued aspirin 81 mg tablet,delayed release (DR/EC) 81 mg PO DAILY No Action folic acid 1 mg tablet 1 mg PO DAILY Slow Fe 137 mg (45 mg iron) tablet extended release 137 mg PO DAILY Referrals / Follow Up: Yocasta Zhou CNM [Med Staff - Adv Practice Prof] - Care Physician,No Primary [Primary Care Provider] - Disposition Disposition (needs filled in before D/C Order can be placed): Home, Self Care
[2025-02-06 07:41] VITALS: BP 107/70; PULSE 70; RESP 16; TEMP 36.1
== END 2025-02-06 08:45 | disposition home or self-care (01) | DRG 807 ==
LOC: WPOUT 08:11 → WP 08:11
PROVIDERS: Admitting Provider Advanced Practice Midwife; Visit Provider Obstetrics & Gynecology
DX: O99.824 Streptococcus B carrier state complicating childbirth (principal); Z37.0 Single live birth; O70.0 First degree perineal laceration during delivery; Z3A.39 39 weeks gestation of pregnancy; Z79.82 Long term (current) use of aspirin; Z79.899 Other long term (current) drug therapy
CPT/HCPCS: 59025; 59050; 84112; 85025; 86780; 86850; 86900; 86901; 99221; G0378